=== PATIENT | female | born 1945 | race African-American/Black ===

== ENCOUNTER 2021-03-30 08:05 | Emergency (ER) | payer OTHER, MEDICARE, SELFPAY ==
[2021-03-30 08:31] VITALS: BP 155/67; PULSE 60; RESP 16; TEMP 36.5; O2SAT 99
[2021-03-30 09:10] VITALS: BP 160/82
--- NOTE | 2021-03-30 09:11 | ED.GENADULT ---
HPI - General Adult General Chief complaint: Ear Stated complaint: HBP Time Seen by Provider: 03/30/21 08:57 Source: patient and RN notes reviewed Mode of arrival: ambulatory Limitations: no limitations History of Present Illness HPI narrative: Patient presents today complaining of high blood pressure. States that last night her blood pressure was running 180s over 100s. She was not having any symptoms at that time to include headache, dizziness, chest pain, shortness of breath. She did however take extra doses of her blood pressure medication to compensate for the high readings, stating that she did not want to have a stroke. She takes Lipo flavonoid for her tinnitus and is wondering if this is having any effect on her blood pressure medication. MD complaint: High blood pressure Related Data Home Medications Medication Instructions Recorded Confirmed amlodipine 10 mg PO DAILY 03/30/21 03/30/21 atorvastatin 20 mg PO DAILY 03/30/21 03/30/21 ergocalciferol (vitamin D2) 1,250 mcg PO DAILY 03/30/21 03/30/21 lisinopril-hydrochlorothiazide 1 tablet PO DAILY 03/30/21 03/30/21 metformin 500 mg PO BID 03/30/21 03/30/21 metoprolol tartrate 25 mg PO DAILY 03/30/21 03/30/21 pantoprazole 40 mg PO DAILY 03/30/21 03/30/21 polysaccharide iron complex 150 mg PO DAILY 03/30/21 03/30/21 [Poly-Iron] Allergies Allergy/AdvReac Type Severity Reaction Status Date / Time acetaminophen Allergy Unknown ITCHING Verified 03/30/21 09:17 AND SWELLING CODEINE PHOS Allergy Unknown ITCHING Uncoded 03/30/21 09:17 AND SWELLING Review of Systems Review of Systems: Narrative: CONSTITUTIONAL: Denies body aches, fever, chills, or sweats. EYES: Denies visual changes, redness, or discharge. ENT: Denies rhinorrhea, congestion, sore throat, or otalgia. CARDIOVASCULAR: Denies chest pain, palpitations, or edema. RESPIRATORY: Denies cough or dyspnea. GASTROINTESTINAL: Denies abdominal pain, nausea, vomiting, or diarrhea. GENITOURINARY: Denies dysuria or hematuria. SKIN: Denies rash, itching, or wounds. MUSCULOSKELETAL: Denies back pain, joint pain, or myalgia. NEUROLOGIC: Denies headache, numbness, tingling, or weakness. PSYCH: Denies depression or anxiety. [facility] Past Medical History Medical History (Updated 03/30/21 @ 09:18 by Bhavani Albrecht, [facility], ) Diabetes GERD (gastroesophageal reflux disease) High cholesterol Hypertension Tinnitus Comments At time of signature, I have reviewed and agree with nursing past medical, surgical, social and family history unless otherwise noted. Please see nursing chart for further information. There is no relevant family history pertinent to the presenting complaint Exam Narrative: Exam Narrative: GENERAL: Well-appearing, well-nourished, and in no acute distress. HEAD: Normocephalic, atraumatic. EYES: EOMI. No redness or drainage. Conjunctivae normal. ENT: Mucous membranes pink and moist. NECK: Normal AROM. CHEST: No respiratory distress. Clear to auscultation. HEART: Regular rate and rhythm. No murmur appreciated. Normal peripheral pulses. EXTREMITIES: Normal range of motion. No edema. SKIN: Warm, dry, no rash. Capillary refill normal. Normal skin turgor. NEURO: No focal deficits. Alert and oriented x3. Gait steady. PSYCH: Normal affect. No signs of depression or anxiety. Patient requested that I manually rechecked her BP during my exam. It was 160/82. Course Vital Signs Vital signs: Vital Signs Temperature 97.7 F 03/30/21 08:31 Pulse Rate 60 03/30/21 08:31 Respiratory Rate 16 03/30/21 08:31 Blood Pressure 155/67 H 03/30/21 08:31 Pulse Oximetry 99 03/30/21 08:31 Temperature 97.7 F 03/30/21 08:31 Pulse Rate 60 03/30/21 08:31 Respiratory Rate 16 03/30/21 08:31 Blood Pressure 155/67 H 03/30/21 08:31 Pulse Oximetry 99 03/30/21 08:31 Reviewed. Pt has been instructed to follow up with her PCP regarding her elevated blood pressure today.
== END 2021-03-30 09:26 | disposition home or self-care (01) ==
PROVIDERS: Emergency Provider Nurse Practitioner; PCP Family Medicine
DX: I10 Essential (primary) hypertension (principal); E11.9 Type 2 diabetes mellitus without complications; K21.9 Gastro-esophageal reflux disease without esophagitis; E78.00 Pure hypercholesterolemia, unspecified; Z79.84 Long term (current) use of oral hypoglycemic drugs
CPT/HCPCS: 99211; G0463

== ENCOUNTER 2022-07-24 17:14 | Emergency (ER) | payer OTHER, MEDICARE, SELFPAY ==
--- NOTE | 2022-07-24 17:20 | ED.FEMALEGU ---
HPI - Female Genitourinary General Chief complaint: Urogenital-Female Stated complaint: uti Time Seen by Provider: 07/24/22 17:25 Source: patient, RN notes reviewed and old records reviewed Mode of arrival: ambulatory Limitations: no limitations History of Present Illness HPI Narrative: 77-year-old female presents to the [facility] with complaints of urgency, burning and frequency of urination since yesterday Denies fevers. No treatment prior to arrival. Denies abdominal pain or chest pain. No nausea vomiting or diarrhea. Denies any back or flank pain Related Data Home Medications Medication Instructions Recorded Confirmed atorvastatin 20 mg tablet 20 mg PO DAILY 03/30/21 07/24/22 ergocalciferol (vitamin D2) 1,250 1,250 mcg PO DAILY 03/30/21 07/24/22 mcg (50,000 unit) capsule metformin 500 mg tablet 500 mg PO BID 03/30/21 07/24/22 metoprolol tartrate 25 mg tablet 25 mg PO DAILY 03/30/21 07/24/22 pantoprazole 40 mg tablet,delayed 40 mg PO DAILY 03/30/21 07/24/22 release polysaccharide iron complex 150 mg 150 mg PO DAILY 03/30/21 07/24/22 iron capsule (Poly-Iron) hydralazine 50 mg tablet 50 mg PO DAILY 07/24/22 07/24/22 ketorolac 0.5 % eye drops 1 drp EACH EYE TID 07/24/22 07/24/22 losartan 25 mg tablet 25 mg PO DAILY 07/24/22 07/24/22 prednisolone acetate 1 % eye 1 drp EACH EYE TID 07/24/22 07/24/22 drops,suspension Allergies Allergy/AdvReac Type Severity Reaction Status Date / Time acetaminophen Allergy Unknown ITCHING Verified 07/24/22 17:19 AND SWELLING codeine Allergy Unknown Itching Verified 07/24/22 17:19 lisinopril Allergy Unknown Other Verified 07/24/22 17:34 Review of Systems Review of Systems: All systems reviewed & are unremarkable except as noted in HPI and below Constitutional: Constitutional: Reports no additional constitutional complaints, Denies chills and Denies fatigue Eyes: Eyes: Reports no additional eye complaints ENT: Reports system reviewed and no additional complaints, except as documented Cardiovascular: Cardiovascular: Reports no additional cardiovascular complaints Respiratory: Respiratory: Reports no additional respiratory complaints Gastrointestinal: Gastrointestinal: Reports no additional gastrointestinal complaints, Denies abdominal pain, Denies diarrhea, Denies nausea and Denies vomiting Genitourinary: Genitourinary: Reports as per HPI, Reports hematuria, Reports nocturia, Reports dysuria, Denies flank pain and Denies vaginal discharge Musculoskeletal: Musculoskeletal: Reports no additional musculoskeletal complaints and Denies back pain Integumentary/Breasts: Skin/Breast: Reports system reviewed and no additional complaints, except as docu Neurologic: Reports system reviewed and no additional complaints, except as documented Psychiatric: Psychiatric: Reports no additional psychiatric complaints Endocrine: Endocrine: Denies fatigue Allergic/Immunologic: Allergic/Immunologic: Reports no additional allergic/immunologic complaints PMFSH Past Medical History Medical History Diabetes GERD (gastroesophageal reflux disease) High cholesterol Hypertension Tinnitus Social History Social History (Updated 07/24/22 @ 18:11 by Kristy Castano APRN) Gender identity (if verbalized by the patient): Female Comments At the time of my signature, I reviewed and agree with the nursing past medical, surgical, social, and family history. There is no relevant family history pertinent to the patient complaint. Exam Const: General: healthy appearing, no acute distress and alert Nutritional Appearance: well nourished and obese Orientation/consciousness: patient oriented x3 Limitations: no limitations HENMT: Head: normal to inspection Ears: external ears normal Eyes: Conjunctivae: conjunctivae normal Pupils: Equal, round and reactive pupils present Neck: Neck: normal visual inspection, no lymphadenopathy
[2022-07-24 17:28] VITALS: BP 166/74; PULSE 92; RESP 16; TEMP 36.4; O2SAT 99
== END 2022-07-24 17:38 | disposition home or self-care (01) ==
PROVIDERS: Emergency Provider Nurse Practitioner; PCP Family Medicine
DX: N39.0 Urinary tract infection, site not specified (principal); E11.9 Type 2 diabetes mellitus without complications; K21.9 Gastro-esophageal reflux disease without esophagitis; E78.00 Pure hypercholesterolemia, unspecified; I10 Essential (primary) hypertension
CPT/HCPCS: 81003; 87086; 99213; G0463

== ENCOUNTER 2022-10-28 13:02 | Emergency (ER) | payer OTHER, MEDICARE, SELFPAY ==
[2022-10-28 13:20] VITALS: BP 136/69; PULSE 71; RESP 16; TEMP 37.2; O2SAT 99
--- NOTE | 2022-10-28 13:48 | ED.URI ---
HPI - URI/Sore Throat General Chief Complaint: Upper Respiratory Infection Stated Complaint: Sinus,Cough Time Seen by Provider: 10/28/22 13:48 Source: patient Mode of arrival: ambulatory Limitations: no limitations History of Present Illness HPI Narrative: 77-year-old female presents with complaint of nasal congestion, fatigue for 6 days. Is taking an [id number] flu medications that is improving her symptoms. Afebrile. No chest pain or shortness of breath. States I am here because I want to know what is wrong with me . All systems reviewed and negative except as noted above. Related Data Home Medications Medication Instructions Recorded Confirmed metformin 500 mg tablet 500 mg PO BID 03/30/21 07/24/22 metoprolol tartrate 25 mg tablet 25 mg PO DAILY 03/30/21 07/24/22 polysaccharide iron complex 150 mg 150 mg PO DAILY 03/30/21 07/24/22 iron capsule (Poly-Iron) hydralazine 50 mg tablet 50 mg PO DAILY 07/24/22 07/24/22 ketorolac 0.5 % eye drops 1 drp EACH EYE TID 07/24/22 07/24/22 losartan 25 mg tablet 25 mg PO DAILY 07/24/22 07/24/22 prednisolone acetate 1 % eye 1 drp EACH EYE TID 07/24/22 07/24/22 drops,suspension lactulose 10 gram/15 mL oral 10/28/22 solution rosuvastatin 20 mg tablet mg 10/28/22 Allergies Allergy/AdvReac Type Severity Reaction Status Date / Time acetaminophen Allergy Unknown ITCHING Verified 10/28/22 13:31 AND SWELLING codeine Allergy Unknown Itching Verified 10/28/22 13:31 lisinopril Allergy Unknown Other Verified 10/28/22 13:31 Review of Systems Review of Systems: CONSTITUTIONAL: Denies fever, chills, or sweats. reports fatigue. EYES: Denies visual changes, redness, or discharge. ENT: Reports rhinorrhea, congestion. Denies sore throat, or otalgia. CARDIOVASCULAR: Denies chest pain, palpitations, or edema. RESPIRATORY: Denies cough or dyspnea. GASTROINTESTINAL: Denies abdominal pain, nausea, vomiting, or diarrhea. GENITOURINARY: Denies dysuria or hematuria. SKIN: Denies rash or itching. MUSCULOSKELETAL: Denies back pain, joint pain, or myalgia. NEUROLOGIC: Denies headache, numbness, or weakness. PSYCHIATRIC: Denies anxiety or depression. All other systems reviewed are negative, except as documented in HPI. [facility] Past Medical History Medical History Diabetes GERD (gastroesophageal reflux disease) High cholesterol Hypertension Tinnitus Social History Social History (Updated 07/24/22 @ 18:11 by Kristy Castano APRN) Gender identity (if verbalized by the patient): Female Comments At time of signature, agree with nursing past medical, surgical, social and family history. There is no relevant family history pertinent to the presenting complaint. Exam Narrative: GENERAL: This is a well-nourished, well-developed patient, in no apparent distress. HEAD: normocephalic, atraumatic. EYES: PERRL. Sclera clear/white. Vision is grossly intact. EARS: External ears normal, auditory canals clear and without drainage, TMs normal without perforation. Hearing grossly intact. NOSE: External nose normal with Clear nasal drainage, erythema to both nares. THROAT: Mucous membranes moist, posterior pharynx clear. NECK: Neck supple, non-tender without lymphadenopathy, masses or thyromegaly. CARDIOVASCULAR: Regular rate and rhythm without murmurs, gallops, or rubs. RESPIRATORY: Clear to auscultation. Breath sounds equal bilaterally. No wheezes, rales, or rhonchi. SKIN: warm, Dry, intact with no suspicious lesions or rash, good texture and turgor. NEURO: awake, alert, and oriented to person, place and time. There were no obvious focal neurologic abnormalities. EXTREMITIES: No joint tenderness, effusion, or edema noted. Course Course Level of Care: Express Care Visit Vital Signs Vital signs: Vital Signs Temperature 37.2 C 10/28/22 13:20 Pulse Rate 71 10/28/22 13:20 Respiratory Rate 16 10/28/22 1
== END 2022-10-28 14:17 | disposition home or self-care (01) ==
PROVIDERS: Emergency Provider Nurse Practitioner Family; PCP Family Medicine
DX: U07.1 COVID-19 (principal); E11.9 Type 2 diabetes mellitus without complications; K21.9 Gastro-esophageal reflux disease without esophagitis; E78.00 Pure hypercholesterolemia, unspecified; I10 Essential (primary) hypertension; Z79.84 Long term (current) use of oral hypoglycemic drugs
CPT/HCPCS: 87426; 99213; C9803; G0463

== ENCOUNTER 2024-03-26 13:27 | Emergency (ER) | payer OTHER, MEDICARE, SELFPAY ==
--- NOTE | 2024-03-26 13:29 | ED.FEMALEGU ---
HPI - Female Genitourinary General Chief complaint: Urogenital-Female Stated complaint: Urinary Problems Time Seen by Provider: 03/26/24 13:37 Source: patient and RN notes reviewed Mode of arrival: ambulatory Limitations: no limitations History of Present Illness HPI Narrative: 78-year-old female presents with concern for 1 day history of dysuria, frequency, urgency with mild stomach ache. She denies fever, aches, chills, sweats, back pain, vomiting. Reports history of urinary tract infections. MD elicited complaint: UTI Related Data Home Medications Medication Instructions Recorded Confirmed metformin 500 mg tablet 500 mg PO BID 03/30/21 07/24/22 metoprolol tartrate 25 mg tablet 25 mg PO DAILY 03/30/21 07/24/22 polysaccharide iron complex 150 mg 150 mg PO DAILY 03/30/21 07/24/22 iron capsule (Poly-Iron) hydralazine 50 mg tablet 50 mg PO DAILY 07/24/22 07/24/22 ketorolac 0.5 % eye drops 1 drp EACH EYE TID 07/24/22 07/24/22 losartan 25 mg tablet 25 mg PO DAILY 07/24/22 07/24/22 prednisolone acetate 1 % eye 1 drp EACH EYE TID 07/24/22 07/24/22 drops,suspension rosuvastatin 20 mg tablet mg 10/28/22 aspirin 81 mg tablet,delayed mg 03/26/24 release hydrochlorothiazide 25 mg tablet mg 03/26/24 nitrofurantoin 100 mg PO BID 03/26/24 03/26/24 monohydrate/macrocrystals 100 mg capsule Allergies Allergy/AdvReac Type Severity Reaction Status Date / Time acetaminophen Allergy Unknown ITCHING Verified 03/26/24 13:33 AND SWELLING codeine Allergy Unknown Itching Verified 03/26/24 13:33 lisinopril Allergy Unknown Other Verified 03/26/24 13:33 Review of Systems Review of Systems: CONSTITUTIONAL: Denies malaise, chills, sweats, or fever. CARDIOVASCULAR: Denies chest pain, palpitations, or edema. RESPIRATORY: Denies cough or dyspnea. GASTROINTESTINAL: Denies abdominal pain, nausea, vomiting, diarrhea. Reports cells that stomach GENITOURINARY: Reports dysuria, frequency, urgency. Denies flank pain or hematuria. SKIN: Denies rash or itching. MUSCULOSKELETAL: Denies back pain or myalgia. All systems reviewed & are unremarkable except as noted in HPI and below PMFSH Past Medical History Medical History Diabetes GERD (gastroesophageal reflux disease) High cholesterol Hypertension Tinnitus Social History Social History (Updated 07/24/22 @ 18:11 by Kristy Castano APRN) Gender identity (if verbalized by the patient): Female Comments At time of signature, agree with nursing past medical, surgical, social and family history. There is no relevant family history pertinent to the presenting complaint Exam Narrative: GENERAL: Well-appearing, well-nourished, and in no acute distress. HEAD: Normocephalic. EYES: PERRLA, conjunctivae clear. NECK: Supple. No lymphadenopathy CHEST: Clear to auscultation. No respiratory distress. HEART: Regular rate and rhythm. ABDOMEN: Soft, nontender upon palpation, nondistended, normal active bowel sounds, no palpable or pulsatile masses, no guarding. No CVA tenderness SKIN: Warm, dry, no rash. NEURO: Alert and oriented x3. PSYCH: Normal mood and affect Course Course Emergency Course: Patient is aware of diagnosis, understands and agrees to treatment plan. Anticipatory guidance given. Patient agrees to follow-up as directed and is aware of reasons to seek care at the emergency department. Portions of this record may have been created with voice recognition software Level of Care: Express Care Visit Vital Signs Vital signs: Reviewed. MDM - Female Genitourinary MDM Narrative Medical decision making narrative: Exam findings and UA show no acute concerns or changes; patient is non-toxic appearing and is in no distress. Patient is appropriate for outpatient treatment and follow-up. Differential Diagnosis Differential diagnosis: Likely urinary tract infection and cystitis Critical Care Time Cri
[2024-03-26 13:35] VITALS: BP 143/60; PULSE 75; RESP 16; TEMP 36.4; O2SAT 99
[2024-03-26 13:44] VITALS: BP 143/60; PULSE 75; RESP 16; TEMP 36.4; O2SAT 99
== END 2024-03-26 13:47 | disposition home or self-care (01) ==
PROVIDERS: Emergency Provider Nurse Practitioner; PCP Internal Medicine
DX: N39.0 Urinary tract infection, site not specified (principal); E11.9 Type 2 diabetes mellitus without complications; Z79.84 Long term (current) use of oral hypoglycemic drugs; K21.9 Gastro-esophageal reflux disease without esophagitis; E78.00 Pure hypercholesterolemia, unspecified; I10 Essential (primary) hypertension; Z79.82 Long term (current) use of aspirin
CPT/HCPCS: 81003; 87086; 99213; G0463

== ENCOUNTER 2024-06-15 13:42 | Emergency (ER) | payer OTHER, MEDICARE, SELFPAY ==
[2024-06-15 14:00] VITALS: BP 117/50; PULSE 68; RESP 18; TEMP 36.1; O2SAT 95
--- NOTE | 2024-06-15 14:16 | ED.EYEPROB ---
HPI - Eye Problem General Chief complaint: Eye Problems Stated complaint: left eye red Time Seen by Provider: 06/15/24 14:10 Source: patient and RN notes reviewed Mode of arrival: ambulatory Limitations: no limitations History of Present Illness HPI Narrative: Patient presents today with redness to her left eye. Reports she noted ate yesterday after getting since open her eye when washing her face. Denies any current pain, itching, drainage, vision changes. She wears glasses only when reading. Visual acuity upon arrival is 20/40 in either eye. Patient is on aspirin daily. Related Data Home Medications Medication Instructions Recorded Confirmed metformin 500 mg tablet 500 mg PO BID 03/30/21 06/15/24 metoprolol tartrate 25 mg tablet 25 mg PO DAILY 03/30/21 06/15/24 polysaccharide iron complex 150 mg 150 mg PO DAILY 03/30/21 06/15/24 iron capsule (Poly-Iron) hydralazine 50 mg tablet 50 mg PO DAILY 07/24/22 06/15/24 losartan 25 mg tablet 25 mg PO DAILY 07/24/22 06/15/24 rosuvastatin 20 mg tablet 20 mg PO DAILY 10/28/22 06/15/24 aspirin 81 mg tablet,delayed 81 mg PO DAILY 03/26/24 06/15/24 release hydrochlorothiazide 25 mg tablet 25 mg PO DAILY 03/26/24 06/15/24 Allergies Allergy/AdvReac Type Severity Reaction Status Date / Time acetaminophen Allergy Unknown ITCHING Verified 06/15/24 13:45 AND SWELLING codeine Allergy Unknown Itching Verified 06/15/24 13:45 lisinopril Allergy Unknown Other Verified 06/15/24 13:45 Review of Systems Review of Systems: CONSTITUTIONAL: Denies body aches, fever, chills, or sweats. EYES: Denies visual changes, discharge.+ left eye redness ENT: Denies rhinorrhea, congestion, sore throat, or otalgia. CARDIOVASCULAR: Denies chest pain, palpitations, or edema. RESPIRATORY: Denies cough or dyspnea. GASTROINTESTINAL: Denies abdominal pain, nausea, vomiting, or diarrhea. GENITOURINARY: Denies dysuria or hematuria. SKIN: Denies rash, itching, or wounds. MUSCULOSKELETAL: Denies back pain, joint pain, or myalgia. NEUROLOGIC: Denies headache, numbness, tingling, or weakness. PSYCH: Denies depression or anxiety. PMFSH Past Medical History Medical History Diabetes GERD (gastroesophageal reflux disease) High cholesterol Hypertension Tinnitus Social History Social History Gender identity (if verbalized by the patient): Female Comments At time of signature, I have reviewed and agree with nursing past medical, surgical, social and family history unless otherwise noted. Please see nursing chart for further information. There is no relevant family history pertinent to the presenting complaint Exam Narrative: GENERAL: Well-appearing, well-nourished, and in no acute distress. HEAD: Normocephalic, atraumatic. EYES: EOMI. PERRL. No drainage. Conjunctivae normal. Mild to Moderate Left subconjunctival hemorrhage. Lids and lashes normal. ENT: Mucous membranes pink and moist. NECK: Normal AROM. CHEST: No respiratory distress. EXTREMITIES: Normal range of motion. No edema. SKIN: Warm, dry, no rash. Capillary refill normal. Normal skin turgor. NEURO: No focal deficits. Alert and oriented x3. Gait steady. PSYCH: Normal affect. No signs of depression or anxiety. Course Course Level of Care: Express Care Visit Vital Signs Vital signs: Vital Signs Temperature 96.9 F L 06/15/24 14:00 Pulse Rate 68 06/15/24 14:00 Respiratory Rate 18 06/15/24 14:00 Blood Pressure 117/50 L 06/15/24 14:00 Pulse Oximetry 95 06/15/24 14:00 Oxygen Delivery Room Air 06/15/24 14:00 Temperature 96.9 F L 06/15/24 14:00 Pulse Rate 68 06/15/24 14:00 Respiratory Rate 18 06/15/24 14:00 Blood Pressure 117/50 L 06/15/24 14:00 Pulse Oximetry 95 06/15/24 14:00 Oxygen Delivery Room Air 06/15/24 14:00 Reviewed MDM - Eye Problem
== END 2024-06-15 14:20 | disposition home or self-care (01) ==
PROVIDERS: Emergency Provider Nurse Practitioner; PCP Internal Medicine
DX: H11.32 Conjunctival hemorrhage, left eye (principal); E11.9 Type 2 diabetes mellitus without complications; Z79.84 Long term (current) use of oral hypoglycemic drugs; K21.9 Gastro-esophageal reflux disease without esophagitis; E78.00 Pure hypercholesterolemia, unspecified; I10 Essential (primary) hypertension; Z79.82 Long term (current) use of aspirin
CPT/HCPCS: 99212; G0463

== ENCOUNTER 2024-08-04 16:45 | Emergency (ER) | payer OTHER, MEDICARE, SELFPAY ==
[2024-08-04 17:03] VITALS: BP 130/65; PULSE 74; RESP 16; TEMP 36.1; O2SAT 99
[2024-08-04 17:10] LABS: EDUAAPPEAR Clear; EDUABILI Negative (Negative); EDUABLOOD Negative (Negative); EDUACOLOR1 Yellow; EDUAGLUCOSE Negative (Negative); EDUAKETONE Negative (Negative); EDUALEUKO 2+ (Negative); EDUANITRATE Negative (Negative); EDUAPROTEIN Negative (Negative); EDUAUROBILI 0.2
--- NOTE | 2024-08-04 17:55 | ED.ABDPAIN ---
HPI - Abdominal Pain General Chief Complaint: Urogenital-Female Stated Complaint: urinary issue Time Seen by Provider: 08/04/24 17:56 Source: patient, RN notes reviewed and old records reviewed Mode of arrival: ambulatory Limitations: no limitations History of Present Illness HPI narrative: Patient presents with complaints of urinary frequency, burning, hematuria. She reports symptoms have been present for 3 or 4 days. States that symptoms are slightly worse today than at onset. She denies any fever, chills, sweats. She denies any back pain, she denies any abdominal pain. She denies any nausea or vomiting. She voices no other concerns or complaints today. Related Data Home Medications Medication Instructions Recorded Confirmed metformin 500 mg tablet 500 mg PO BID 03/30/21 08/04/24 metoprolol tartrate 25 mg tablet 25 mg PO DAILY 03/30/21 08/04/24 polysaccharide iron complex 150 mg 150 mg PO DAILY 03/30/21 08/04/24 iron capsule (Poly-Iron) hydralazine 50 mg tablet 50 mg PO DAILY 07/24/22 08/04/24 losartan 25 mg tablet 25 mg PO DAILY 07/24/22 08/04/24 rosuvastatin 20 mg tablet 20 mg PO DAILY 10/28/22 08/04/24 aspirin 81 mg tablet,delayed 81 mg PO DAILY 03/26/24 08/04/24 release hydrochlorothiazide 25 mg tablet 25 mg PO DAILY 03/26/24 08/04/24 pantoprazole 40 mg tablet,delayed 40 mg PO DAILY 08/04/24 08/04/24 release polysaccharide iron complex 150 mg 150 mg PO DAILY 08/04/24 08/04/24 iron capsule rosuvastatin 40 mg tablet 40 mg PO DAILY 08/04/24 08/04/24 Allergies Allergy/AdvReac Type Severity Reaction Status Date / Time acetaminophen Allergy Unknown ITCHING Verified 08/04/24 16:48 AND SWELLING codeine Allergy Unknown Itching Verified 08/04/24 16:48 lisinopril Allergy Unknown Other Verified 08/04/24 16:48 Review of Systems Review of Systems: All systems reviewed & are unremarkable except as noted in HPI and below Constitutional: Constitutional: Reports no additional constitutional complaints ENT: Reports system reviewed and no additional complaints, except as documented Cardiovascular: Cardiovascular: Reports no additional cardiovascular complaints Respiratory: Respiratory: Reports no additional respiratory complaints Gastrointestinal: Gastrointestinal: Reports no additional gastrointestinal complaints Genitourinary: Genitourinary: Reports as per HPI, Reports dysuria and Reports urinary urgency [facility] Past Medical History Medical History Diabetes GERD (gastroesophageal reflux disease) High cholesterol Hypertension Tinnitus Social History Social History Gender identity (if verbalized by the patient): Female Comments At the time of my signature, I reviewed and agree with the nursing past medical, surgical, social, and family history. There is no relevant family history pertinent to the patient complaint. Exam Const: General: cooperative, no acute distress, alert and awake Orientation/consciousness: oriented to person, oriented to place and oriented to time HENMT: Head: normal to inspection Resp: Effort & Inspection: normal respiratory effort and able to speak in complete sentences Auscultation: clear to auscultation bilaterally, no crackles, no rales, no rhonchi and no wheezes Cardio: Palpation: normal PMI Rate: regular rate Rhythm: regular rhythm Heart sounds: S1 normal heart sound present and S2 normal heart sound present : General: Yes bladder normal to palpation and Yes no CVA tenderness Back/Spine/Pelvis: Back: no CVA tenderness Neuro: General: oriented to person, oriented to place and oriented to time Cranial nerves: Yes CN's II-XII intact bilaterally Psych: Appearance: grossly normal Thought process: Normal thought process present Insight: Good insight present (Psych) Judgement: Good judgement present (Psych) Course Course Level of Care: E
== END 2024-08-04 18:07 | disposition home or self-care (01) ==
PROVIDERS: Emergency Provider Nurse Practitioner Family; PCP Internal Medicine
DX: N39.0 Urinary tract infection, site not specified (principal); E11.9 Type 2 diabetes mellitus without complications; I10 Essential (primary) hypertension; K21.9 Gastro-esophageal reflux disease without esophagitis; E78.00 Pure hypercholesterolemia, unspecified
CPT/HCPCS: 81003; 87077; 87086; 87186; 99213; G0463

== ENCOUNTER 2024-11-26 13:33 | Emergency (ER) | payer OTHER, MEDICARE, SELFPAY ==
[2024-11-26 13:43] VITALS: BP 119/60; PULSE 68; RESP 16; TEMP 36.6; O2SAT 100
--- NOTE | 2024-11-26 13:48 | ED_ITS ---
HPI - Female Genitourinary General Chief complaint: Urogenital-Female Stated complaint: UTI Time Seen by Provider: 11/26/24 13:35 Source: patient Mode of arrival: ambulatory Limitations: no limitations History of Present Illness HPI Narrative: Antonia is a 79-year-old female patient presenting to the clinic today with complaints of possible urinary tract infection times 1 week. He reports burning, urgency, frequency, and urinary odor. Does report some lower abdominal pressure. Denies any fevers, chills, or body aches. Denies any flank pain. Related Data Home Medications ?Medication ?Instructions ?Recorded ?Confirmed ?Last Taken ?Type metformin 500 mg tablet 500 mg PO BID 03/30/21 08/04/24 Unknown History metoprolol tartrate 25 mg tablet 25 mg PO DAILY 03/30/21 08/04/24 Unknown History polysaccharide iron complex 150 mg 150 mg PO DAILY 03/30/21 08/04/24 Unknown History iron capsule (Poly-Iron) hydralazine 50 mg tablet 50 mg PO DAILY 07/24/22 08/04/24 Unknown History losartan 25 mg tablet 25 mg PO DAILY 07/24/22 08/04/24 Unknown History rosuvastatin 20 mg tablet 20 mg PO DAILY 10/28/22 08/04/24 Unknown History aspirin 81 mg tablet,delayed 81 mg PO DAILY 03/26/24 08/04/24 Unknown History release hydrochlorothiazide 25 mg tablet 25 mg PO DAILY 03/26/24 08/04/24 Unknown History pantoprazole 40 mg tablet,delayed 40 mg PO DAILY 08/04/24 08/04/24 Unknown History release polysaccharide iron complex 150 mg 150 mg PO DAILY 08/04/24 08/04/24 Unknown History iron capsule rosuvastatin 40 mg tablet 40 mg PO DAILY 08/04/24 08/04/24 Unknown History Allergies Allergy/AdvReac Type Severity Reaction Status Date / Time acetaminophen Allergy Unknown ITCHING Verified 11/26/24 13:49 AND SWELLING codeine Allergy Unknown Itching Verified 11/26/24 13:49 lisinopril Allergy Unknown Other Verified 11/26/24 13:49 Review of Systems Review of Systems: Pertinent positives per HPI. Patient denies any fever, chills, rash, headache, visual changes, dizziness, cough, runny nose, sore throat, shortness of breath, chest pain, palpitations, nausea, vomiting, diarrhea, constipation. PMFSH Past Medical History Medical History Diabetes High cholesterol GERD (gastroesophageal reflux disease) Tinnitus Hypertension Social History Social History Gender identity (if verbalized by the patient): Female Comments At the time of my signature, I reviewed and agree with the nursing past medical, surgical, social, and family history. There is no relevant family history pertinent to the patient complaint. Exam Narrative: General: Well-developed, well nourished, in no apparent distress. Head: Normocephalic, atraumatic. Cardio: Regular rate and rhythm, s1 and s2 normal, no murmur appreciated. Resp: Clear to auscultation bilaterally, no rhonchi, rales, wheezing or rubs. Abdomen: Soft, pliable, bowel sounds present in all quadrants, tender to palpation over the suprapubic bladder, no organomegly, no CVAT tenderness. Course Course Emergency Course: Portions of this record may have been created with voice recognition software. Level of Care: Express Care Visit Vital Signs Vital signs: Vital Signs Temperature 36.6 C 11/26/24 13:43 Pulse Rate 68 11/26/24 13:43 Respiratory Rate 16 11/26/24 13:43 Blood Pressure 119/60 11/26/24 13:43 Pulse Oximetry 100 11/26/24 13:43 Oxygen Delivery Room Air 11/26/24 13:43 Temperature 36.6 C 11/26/24 13:43 Pulse Rate 68 11/26/24 13:43 Respiratory Rate 16 11/26/24 13:43 Blood Pressure 119/60 11/26/24 13:43 Pulse Oximetry 100 11/26/24 13:43 Oxygen Delivery Room Air 11/26/24 13:43 Vital signs reviewed MDM - Female Genitourinary MDM Narrative Medical decision making narrative: At the time of visit patient is resting comfortably on the exam table. Patient appears to be nontoxic. Labs: Urinalysis positive for leukocytes, protein, and ketones trace. Plan: Patient has urinary tract infection. Prescription for Keflex was sent to the pharmacy. We will send urine for culture. Supportive measures were discussed with the patient and they voiced understanding discharge instructions and agrees to treatment plan. Return precautions reviewed Differential Diagnosis Differential diagnosis: Likely urinary tract infection and cystitis Lab Data Labs: Lab Results 11/26/24 Range/Units 13:48 POC Urine Color Yellow POC Urine Clarity Cloudy POC Urine pH 7.0 POC Ur Specif [place] 1.020 POC Urine Protein 1+ (Negative) POC Ur Glucose (UA) Negative (Negative) POC Urine Ketones Trace (Negative) POC Urine Blood Negative (Negative) POC Urine Nitrite Negative (Negative) POC Urine Bilirubin Negative (Negative) POC Urine Urobilinogen 0.2 POC U Leukocyte Esteras Trace (Negative) Discharge Plan Discharge Clinical Impression: Urinary tract infection Qualifiers: Urinary tract infection type: acute cystitis Hematuria presence: without hematuria Qualified Code(s): N30.00 - Acute cystitis without hematuria Patient Disposition: Home, Self-Care Condition: Stable Instructions: Antibiotic Form, Urinary Tract Infection in Women (ED) Additional Instructions: Urinalysis shows leukocytes, protein, and ketones. Increase fluids and stay well hydrated Wipe front to back. May use wet wipes. Avoid tub baths If sexually active- pee before and after intercourse. Wear cotton panties Avoid tight clothing up against the genitals Follow up with your PCP in 1 week if symptoms persist. Patient Language: Telugu Prescriptions: New cephalexin 500 mg capsule 500 mg PO Q12H 7 Days Qty: 14 0RF No Action losartan 25 mg tablet 25 mg PO DAILY hydralazine 50 mg tablet 50 mg PO DAILY metformin 500 mg tablet 500 mg PO BID polysaccharide iron complex [Poly-Iron] 150 mg iron capsule 150 mg PO DAILY metoprolol tartrate 25 mg tablet 25 mg PO DAILY rosuvastatin 20 mg tablet 20 mg PO DAILY aspirin 81 mg tablet,delayed release (DR/EC) 81 mg PO DAILY hydrochlorothiazide 25 mg tablet 25 mg PO DAILY polysaccharide iron complex 150 mg iron capsule 150 mg PO DAILY pantoprazole 40 mg tablet,delayed release (DR/EC) 40 mg PO DAILY rosuvastatin 40 mg tablet 40 mg PO DAILY nitrofurantoin monohyd/m-cryst [Macrobid] 100 mg capsule 100 mg PO Q12H 5 Days Qty: 10 0RF Rx Instructions: must administer with a meal/food Follow-up/Referrals: Quinn,Yoav Grey MD [Primary Care Provider] - Time of Disposition: 14:04 Quality NIHSS Nursing Documentation ED NIHSS nursing documentation: reviewed/agree
[2024-11-26 13:56] LABS: EDUAAPPEAR Cloudy; EDUABILI Negative (Negative); EDUABLOOD Negative (Negative); EDUACOLOR1 Yellow; EDUAGLUCOSE Negative (Negative); EDUAKETONE Trace (Negative); EDUALEUKO Trace (Negative); EDUANITRATE Negative (Negative); EDUAPROTEIN 1+ (Negative); EDUAUROBILI 0.2
== END 2024-11-26 14:10 | disposition home or self-care (01) ==
PROVIDERS: Emergency Provider Nurse Practitioner Family; PCP Internal Medicine
DX: N30.00 Acute cystitis without hematuria (principal); E11.9 Type 2 diabetes mellitus without complications; Z79.84 Long term (current) use of oral hypoglycemic drugs; E78.00 Pure hypercholesterolemia, unspecified; K21.9 Gastro-esophageal reflux disease without esophagitis; I10 Essential (primary) hypertension; Z79.82 Long term (current) use of aspirin
CPT/HCPCS: 81003; 87086; 99213; G0463

== ENCOUNTER 2024-12-26 10:16 | Emergency (ER) | payer OTHER, MEDICARE, SELFPAY ==
[2024-12-26 10:32] VITALS: BP 118/53; PULSE 64; RESP 16; TEMP 35.8; O2SAT 98
[2024-12-26 10:37] LABS: EDUAAPPEAR Clear; EDUABILI Negative (Negative); EDUABLOOD Trace (Negative); EDUACOLOR1 Yellow; EDUAGLUCOSE Negative (Negative); EDUAKETONE Negative (Negative); EDUALEUKO 2+ (Negative); EDUANITRATE Negative (Negative); EDUAPROTEIN 1+ (Negative); EDUASPGRAVITY 1.015; EDUAUROBILI 0.2
--- NOTE | 2024-12-26 11:11 | ED.FEMALEGU ---
HPI - Female Genitourinary General Chief complaint: Urogenital-Female Stated complaint: UTI Time Seen by Provider: 12/26/24 11:11 Source: patient, RN notes reviewed and old records reviewed Mode of arrival: ambulatory Limitations: no limitations History of Present Illness HPI Narrative: 79-year-old female presents to the [facility] with concerns for a UTI. Patient reports that she has taken cranberry pills and some antibiotic. Patient reports that her urine had just does not small right. Symptoms started yesterday. States that she did call her primary care provider and had called in additional testing to [facility]. Patient asking if we can do the testing here at the facility. Explained that we cannot see anything that [facility] does nor what her primary care provider can do. Related Data Home Medications ?Medication ?Instructions ?Recorded ?Confirmed ?Last Taken ?Type metformin 500 mg tablet 500 mg PO BID 03/30/21 12/26/24 Unknown History metoprolol tartrate 25 mg tablet 25 mg PO DAILY 03/30/21 12/26/24 Unknown History polysaccharide iron complex 150 mg 150 mg PO DAILY 03/30/21 12/26/24 Unknown History iron capsule (Poly-Iron) hydralazine 50 mg tablet 50 mg PO DAILY 07/24/22 12/26/24 Unknown History losartan 25 mg tablet 25 mg PO DAILY 07/24/22 12/26/24 Unknown History rosuvastatin 20 mg tablet 20 mg PO DAILY 10/28/22 12/26/24 Unknown History aspirin 81 mg tablet,delayed 81 mg PO DAILY 03/26/24 12/26/24 Unknown History release hydrochlorothiazide 25 mg tablet 25 mg PO DAILY 03/26/24 12/26/24 Unknown History pantoprazole 40 mg tablet,delayed 40 mg PO DAILY 08/04/24 12/26/24 Unknown History release polysaccharide iron complex 150 mg 150 mg PO DAILY 08/04/24 12/26/24 Unknown History iron capsule rosuvastatin 40 mg tablet 40 mg PO DAILY 08/04/24 12/26/24 Unknown History Allergies Allergy/AdvReac Type Severity Reaction Status Date / Time acetaminophen Allergy Unknown ITCHING Verified 12/26/24 10:36 AND SWELLING codeine Allergy Unknown Itching Verified 12/26/24 10:36 lisinopril Allergy Unknown Other Verified 12/26/24 10:36 Review of Systems Review of Systems: All systems reviewed & are unremarkable except as noted in HPI and below Constitutional: Constitutional: Reports no additional constitutional complaints ENT: Reports system reviewed and no additional complaints, except as documented Cardiovascular: Cardiovascular: Reports no additional cardiovascular complaints, Denies chest pain and Denies dyspnea Respiratory: Respiratory: Reports no additional respiratory complaints, Denies chest congestion, Denies cough and Denies dyspnea Genitourinary: Genitourinary: Reports as per HPI Musculoskeletal: Musculoskeletal: Reports no additional musculoskeletal complaints Integumentary/Breasts: Skin/Breast: Reports system reviewed and no additional complaints, except as docu PMFSH Past Medical History Medical History Diabetes High cholesterol GERD (gastroesophageal reflux disease) Tinnitus Hypertension Social History Social History Gender identity (if verbalized by the patient): Female Comments At the time of my signature, I reviewed and agree with the nursing past medical, surgical, social, and family history. There is no relevant family history pertinent to the patient complaint. Exam Const: General: cooperative, healthy appearing, comfortable, no acute distress, well developed, alert and well nourished Nutritional Appearance: well nourished Orientation/consciousness: patient oriented x3 Limitations: no limitations HENMT: Head: normal to inspection Eyes: General: appearance normal, both eyes and all related structures Alignment and Position: alignment normal Neck: Neck: normal visual inspection, full ROM, no lymphadenopathy and no meningeal signs Chest: Chest palpation & inspection: normal inspection of the chest Resp: Effort & Inspection: normal respiratory effort and able to speak in complete sentences Auscultation: clear to auscultation bilaterally, no crackles, no rales, no rhonchi and no wheezes Cardio: Rate: regular rate GI: GI Palp: No abdominal tenderness : General: Yes no CVA tenderness Skin: General skin exam: normal color and no rashes or lesions noted Neuro: General: patient oriented x3, gait normal, moves all extremities and no meningeal signs Cognition (Neuro): normal cognition Speech: normal speech Gait exam (Neuro): Normal gait present Extrem: General: normal to inspection, full ROM, capillary refill normal and normal gait Psych: Appearance: grossly normal and well kempt Mental Status: mental status grossly normal Speech and movement: Normal speech and movement present and Clear speech present Affect: normal affect Attitude: cooperative Course Course Level of Care: Express Care Visit Vital Signs Vital signs: Vital Signs Temperature 96.4 F L 12/26/24 10:32 Pulse Rate 64 12/26/24 10:32 Respiratory Rate 16 12/26/24 10:32 Blood Pressure 118/53 L 12/26/24 10:32 Pulse Oximetry 98 12/26/24 10:32 Oxygen Delivery Room Air 12/26/24 10:32 Temperature 96.4 F L 12/26/24 10:32 Pulse Rate 64 12/26/24 10:32 Respiratory Rate 16 12/26/24 10:32 Blood Pressure 118/53 L 12/26/24 10:32 Pulse Oximetry 98 12/26/24 10:32 Oxygen Delivery Room Air 12/26/24 10:32 Reviewed MDM - Female Genitourinary MDM Narrative Medical decision making narrative: Patient sitting comfortably in exam room. Nontoxic, vitals stable. Patient in no acute distress. Patient presents with concerns for UTI. Leukocytes noted in her urine. Patient was requesting additional testing that her primary care provider has sent to [facility]. Attempted to explain that we are not affiliated with her primary nor with [facility]. Patient is appropriate for outpatient treatment of UTI, will culture Discharge instructions reviewed with patient, as well as provided in writing per nursing staff. The instructions also include specific and strict return/GO TO THE ER as well as f/u information. All questions have been answered, and the patient deny any further questions with discharge and discharge plan. Some parts of this dictation were generated by voice recognition software and may contain typographical and/or grammatical inaccuracies. Differential Diagnosis Differential diagnosis: Likely urinary tract infection and cystitis Lab Data Labs: Lab Results 12/26/24 Range/Units 10:34 POC Urine Color Yellow POC Urine Clarity Clear POC Urine pH 7.0 POC Ur Specif [place] 1.015 POC Urine Protein 1+ (Negative) POC Ur Glucose (UA) Negative (Negative) POC Urine Ketones Negative (Negative) POC Urine Blood Trace (Negative) POC Urine Nitrite Negative (Negative) POC Urine Bilirubin Negative (Negative) POC Urine Urobilinogen 0.2 POC U Leukocyte Esteras 2+ (Negative) Reviewed Critical Care Time Critical Care Time Critical Care Time: No Discharge Plan Discharge Clinical Impression: Urinary tract infection Patient Disposition: Home, Self-Care Condition: Stable Instructions: Antibiotic Form, Urinary Tract Infection in Older Adults (ED) Additional Instructions: Increased water intake Take Tylenol as needed for pain Take antibiotic as prescribed Today your urine dip showed a probability of a UTI. You have been prescribed an antibiotic. Your urine will be sent to our lab for a culture. If at that time a bacteria grows that is not covered by the antibiotic prescribed you will be notified. Follow-up with primary care For new or worsening symptoms go directly to the emergency room Patient Language: Botswanan Prescriptions: New cefuroxime axetil 500 mg tablet 500 mg PO BID Qty: 10 0RF No Action losartan 25 mg tablet 25 mg PO DAILY hydralazine 50 mg tablet 50 mg PO DAILY metformin 500 mg tablet 500 mg PO BID polysaccharide iron complex [Poly-Iron] 150 mg iron capsule 150 mg PO DAILY metoprolol tartrate 25 mg tablet 25 mg PO DAILY rosuvastatin 20 mg tablet 20 mg PO DAILY aspirin 81 mg tablet,delayed release (DR/EC) 81 mg PO DAILY hydrochlorothiazide 25 mg tablet 25 mg PO DAILY polysaccharide iron complex 150 mg iron capsule 150 mg PO DAILY pantoprazole 40 mg tablet,delayed release (DR/EC) 40 mg PO DAILY rosuvastatin 40 mg tablet 40 mg PO DAILY Follow-up/Referrals: Quinn,Yoav Grey MD [Primary Care Provider] - 2 Weeks ( [facility] follow-up) Stand Alone Forms: Work/School Release IP Time of Disposition: 11:18
== END 2024-12-26 11:22 | disposition home or self-care (01) ==
PROVIDERS: Emergency Provider Nurse Practitioner; PCP Internal Medicine
DX: N39.0 Urinary tract infection, site not specified (principal); E11.9 Type 2 diabetes mellitus without complications; Z79.84 Long term (current) use of oral hypoglycemic drugs; I10 Essential (primary) hypertension; E78.00 Pure hypercholesterolemia, unspecified; K21.9 Gastro-esophageal reflux disease without esophagitis; Z79.82 Long term (current) use of aspirin
CPT/HCPCS: 81003; 87086; 99213; G0463

== ENCOUNTER 2025-02-18 14:24 | Emergency (ER) | payer OTHER, MEDICARE, SELFPAY ==
[2025-02-18 14:33] VITALS: BP 125/60; PULSE 65; RESP 16; TEMP 35.9; O2SAT 100
--- NOTE | 2025-02-18 14:37 | ED.FEMALEGU ---
HPI - Female Genitourinary General Chief complaint: Urogenital-Female Stated complaint: UTI Time Seen by Provider: 02/18/25 14:37 Source: patient, RN notes reviewed and old records reviewed Mode of arrival: ambulatory Limitations: no limitations History of Present Illness HPI Narrative: 79-year-old female presents to the [facility] with cloudy, foul-smelling urine since Monday. Denies fevers, abdominal pain. Denies burning with urination. Related Data Home Medications ?Medication ?Instructions ?Recorded ?Confirmed ?Last Taken ?Type metformin 500 mg tablet 500 mg PO BID 03/30/21 12/26/24 Unknown History metoprolol tartrate 25 mg tablet 25 mg PO DAILY 03/30/21 12/26/24 Unknown History polysaccharide iron complex 150 mg 150 mg PO DAILY 03/30/21 12/26/24 Unknown History iron capsule (Poly-Iron) hydralazine 50 mg tablet 50 mg PO DAILY 07/24/22 12/26/24 Unknown History losartan 25 mg tablet 25 mg PO DAILY 07/24/22 12/26/24 Unknown History rosuvastatin 20 mg tablet 20 mg PO DAILY 10/28/22 12/26/24 Unknown History aspirin 81 mg tablet,delayed 81 mg PO DAILY 03/26/24 12/26/24 Unknown History release hydrochlorothiazide 25 mg tablet 25 mg PO DAILY 03/26/24 12/26/24 Unknown History pantoprazole 40 mg tablet,delayed 40 mg PO DAILY 08/04/24 12/26/24 Unknown History release polysaccharide iron complex 150 mg 150 mg PO DAILY 08/04/24 12/26/24 Unknown History iron capsule rosuvastatin 40 mg tablet 40 mg PO DAILY 08/04/24 12/26/24 Unknown History Allergies Allergy/AdvReac Type Severity Reaction Status Date / Time acetaminophen Allergy Unknown ITCHING Verified 02/18/25 14:36 AND SWELLING codeine Allergy Unknown Itching Verified 02/18/25 14:36 lisinopril Allergy Unknown Other Verified 02/18/25 14:36 Review of Systems Review of Systems: All systems reviewed & are unremarkable except as noted in HPI and below Constitutional: Constitutional: Reports no additional constitutional complaints ENT: Reports system reviewed and no additional complaints, except as documented Cardiovascular: Cardiovascular: Reports no additional cardiovascular complaints, Denies chest pain and Denies dyspnea Respiratory: Respiratory: Reports no additional respiratory complaints, Denies chest congestion, Denies cough and Denies dyspnea Genitourinary: Genitourinary: Reports as per HPI Musculoskeletal: Musculoskeletal: Reports no additional musculoskeletal complaints Integumentary/Breasts: Skin/Breast: Reports system reviewed and no additional complaints, except [facility] docu [facility] Past Medical History Medical History Diabetes High cholesterol GERD (gastroesophageal reflux disease) Tinnitus Hypertension Social History Social History Gender identity (if verbalized by the patient): Female Comments At the time of my signature, I reviewed and agree with the nursing past medical, surgical, social, and family history. There is no relevant family history pertinent to the patient complaint. Exam Const: General: cooperative, healthy appearing, comfortable, no acute distress, well developed, alert and well nourished Nutritional Appearance: well nourished Orientation/consciousness: patient oriented x3 Limitations: no limitations HENMT: Head: normal to inspection Mouth: Yes Normal oral and palatal mucosa present, Yes lip normal, Yes tongue normal and Yes moist mucous membranes Eyes: General: appearance normal, both eyes and all related structures Alignment and Position: alignment normal Neck: Neck: normal visual inspection, full ROM, no lymphadenopathy and no meningeal signs Chest: Chest palpation & inspection: normal inspection of the chest Resp: Effort & Inspection: normal respiratory effort and able to speak in complete sentences Auscultation: clear to auscultation bilaterally, no crackles, no rales, no rhonchi and no wheezes Cardio: Rate: regular rate GI: GI Palp: No abdominal tenderness : General: Yes no CVA tenderness Skin: General skin exam: normal color and no rashes or lesions noted Neuro: General: patient oriented x3, gait normal, moves all extremities and no meningeal signs Cognition (Neuro): normal cognition Speech: normal speech Gait exam (Neuro): Normal gait present Extrem: General: normal to inspection, full ROM, capillary refill normal and normal gait Psych: Appearance: grossly normal and well kempt Mental Status: mental status grossly normal Speech and movement: Normal speech and movement present and Clear speech present Affect: normal affect Attitude: cooperative Course Course Level of Care: Express Care Visit Vital Signs Vital signs: Vital Signs Temperature 96.6 F L 02/18/25 14:33 Pulse Rate 65 02/18/25 14:33 Respiratory Rate 16 02/18/25 14:33 Blood Pressure 125/60 02/18/25 14:33 Pulse Oximetry 100 02/18/25 14:33 Oxygen Delivery Room Air 02/18/25 14:33 Temperature 96.6 F L 02/18/25 14:33 Pulse Rate 65 02/18/25 14:33 Respiratory Rate 16 02/18/25 14:33 Blood Pressure 125/60 02/18/25 14:33 Pulse Oximetry 100 02/18/25 14:33 Oxygen Delivery Room Air 02/18/25 14:33 Reviewed MDM - Female Genitourinary MDM Narrative Medical decision making narrative: Patient sitting in exam room. Nontoxic vitals stable. Patient in no acute distress. Patient presents with concerns for UTI. Everything on urine dip were negative except for trace ketones. will culture Patient appropriate for outpatient treatment with close follow-up Discharge instructions reviewed with patient, as well as provided in writing per nursing staff. The instructions also include specific and strict return/GO TO THE ER as well as f/u information. All questions have been answered, and the patient deny any further questions with discharge and discharge plan. Some parts of this dictation were generated by voice recognition software and may contain typographical and/or grammatical inaccuracies. Differential Diagnosis Differential diagnosis: Likely urinary tract infection, cystitis and other (Dysuria) Lab Data Labs: Lab Results 02/18/25 Range/Units 14:45 POC Urine Color Yellow POC Urine Clarity Cloudy POC Urine pH 6.0 POC Ur Specif [place] 1.020 POC Urine Protein Negative (Negative) POC Ur Glucose (UA) Negative (Negative) POC Urine Ketones Trace (Negative) POC Urine Blood Negative (Negative) POC Urine Nitrite Negative (Negative) POC Urine Bilirubin Negative (Negative) POC Urine Urobilinogen 0.2 POC U Leukocyte Esteras Negative (Negative) Reviewed Critical Care Time Critical Care Time Critical Care Time: No Discharge Plan Discharge Clinical Impression: Dysuria Patient Disposition: Home Condition: Stable Instructions: Antibiotic Form, Dysuria (ED) Additional Instructions: Today your urine did not show signs of a UTI. Follow-up with primary care provider New or worsening symptoms go directly to the emergency room Patient Language: Nauruan Prescriptions: No Action losartan 25 mg tablet 25 mg PO DAILY hydralazine 50 mg tablet 50 mg PO DAILY cefuroxime axetil 500 mg tablet 500 mg PO BID Qty: 10 0RF metformin 500 mg tablet 500 mg PO BID polysaccharide iron complex [Poly-Iron] 150 mg iron capsule 150 mg PO DAILY metoprolol tartrate 25 mg tablet 25 mg PO DAILY rosuvastatin 20 mg tablet 20 mg PO DAILY aspirin 81 mg tablet,delayed release (DR/EC) 81 mg PO DAILY hydrochlorothiazide 25 mg tablet 25 mg PO DAILY polysaccharide iron complex 150 mg iron capsule 150 mg PO DAILY pantoprazole 40 mg tablet,delayed release (DR/EC) 40 mg PO DAILY rosuvastatin 40 mg tablet 40 mg PO DAILY Follow-up/Referrals: Quinn,Yoav Grey MD [Primary Care Provider] - 2 Weeks Time of Disposition: 14:59
[2025-02-18 14:53] LABS: EDUAAPPEAR Cloudy; EDUABILI Negative (Negative); EDUABLOOD Negative (Negative); EDUACOLOR1 Yellow; EDUAGLUCOSE Negative (Negative); EDUAKETONE Trace (Negative); EDUALEUKO Negative (Negative); EDUANITRATE Negative (Negative); EDUAPROTEIN Negative (Negative); EDUAUROBILI 0.2
== END 2025-02-18 15:05 | disposition home or self-care (01) ==
PROVIDERS: Emergency Provider Nurse Practitioner; PCP Internal Medicine
DX: R30.0 Dysuria (principal); Z79.84 Long term (current) use of oral hypoglycemic drugs; E11.9 Type 2 diabetes mellitus without complications; I10 Essential (primary) hypertension; E78.00 Pure hypercholesterolemia, unspecified; K21.9 Gastro-esophageal reflux disease without esophagitis; Z79.82 Long term (current) use of aspirin
CPT/HCPCS: 81003; 87086; 99213; G0463

== ENCOUNTER 2025-10-27 11:50 | Emergency (ER) | payer OTHER, MEDICARE, SELFPAY ==
[2025-10-27 12:09] VITALS: BP 151/64; PULSE 83; RESP 16; TEMP 37.7; O2SAT 100
[2025-10-27 12:16] LABS: EDCOVIDSCREEN Positive (Negative)
--- NOTE | 2025-10-27 12:16 | ED.URI ---
HPI - URI/Sore Throat General Chief Complaint: Upper Respiratory Infection Stated Complaint: URI Symptoms Time Seen by Provider: 10/27/25 12:16 Source: patient, RN notes reviewed and old records reviewed Mode of arrival: ambulatory Limitations: no limitations History of Present Illness HPI Narrative: 80-year-old female presents to the [facility] with complaints of when day history of fevers and body aches. Had taken Claritin. Treatments prior to arrival: cold medicine Related Data Home Medications ?Medication ?Instructions ?Recorded ?Confirmed ?Last Taken ?Type metformin 500 mg tablet 500 mg PO BID 03/30/21 10/27/25 Unknown History metoprolol tartrate 25 mg tablet 25 mg PO DAILY 03/30/21 10/27/25 Unknown History polysaccharide iron complex 150 mg 150 mg PO DAILY 03/30/21 12/26/24 Unknown History iron capsule (Poly-Iron) losartan 25 mg tablet 25 mg PO DAILY 07/24/22 10/27/25 Unknown History rosuvastatin 20 mg tablet 20 mg PO DAILY 10/28/22 10/27/25 Unknown History aspirin 81 mg tablet,delayed 81 mg PO DAILY 03/26/24 10/27/25 Unknown History release hydrochlorothiazide 25 mg tablet 25 mg PO DAILY 03/26/24 10/27/25 Unknown History pantoprazole 40 mg tablet,delayed 40 mg PO DAILY 08/04/24 10/27/25 Unknown History release polysaccharide iron complex 150 mg 150 mg PO DAILY 08/04/24 10/27/25 Unknown History iron capsule buspirone 7.5 mg tablet mg 10/27/25 Unknown History estradiol 0.01% (0.1 mg/gram) vaginal 10/27/25 Unknown History vaginal cream hydrochlorothiazide 12.5 mg tablet mg 10/27/25 Unknown History metoprolol succinate 25 mg mg PO 10/27/25 Unknown History tablet,extended release 24 hr Allergies Allergy/AdvReac Type Severity Reaction Status Date / Time acetaminophen Allergy Unknown ITCHING Verified 10/27/25 12:08 AND SWELLING codeine Allergy Unknown Itching Verified 10/27/25 12:08 lisinopril Allergy Unknown Other Verified 10/27/25 12:08 Review of Systems Review of Systems: All systems reviewed & are unremarkable except as noted in HPI and below Constitutional: Constitutional: Reports as per HPI and Reports fever(s) ENT: Reports system reviewed and no additional complaints, except as documented Cardiovascular: Cardiovascular: Reports no additional cardiovascular complaints, Denies chest pain and Denies dyspnea Respiratory: Respiratory: Reports no additional respiratory complaints, Denies chest congestion, Denies cough and Denies dyspnea Musculoskeletal: Musculoskeletal: Reports no additional musculoskeletal complaints Integumentary/Breasts: Skin/Breast: Reports system reviewed and no additional complaints, except as docu PMFSH Past Medical History Medical History Diabetes High cholesterol GERD (gastroesophageal reflux disease) Tinnitus Hypertension Social History Social History Gender identity (if verbalized by the patient): Female Comments At the time of my signature, I reviewed and agree with the nursing past medical, surgical, social, and family history. There is no relevant family history pertinent to the patient complaint. Exam Const: General: cooperative, no acute distress, well developed, alert, tired appearing, uncomfortable and well nourished Nutritional Appearance: well nourished Orientation/consciousness: patient oriented x3 Limitations: no limitations HENMT: Head: normal to inspection Ears: hearing grossly normal bilaterally, external ears normal, TM's normal bilaterally, EAC's normal, mastoids normal and no periauricular adenopathy Face and sinus: normal facial exam and face symmetric Mouth: Yes Normal oral and palatal mucosa present, Yes lip normal, Yes tongue normal and Yes moist mucous membranes Throat: posterior oropharynx normal, uvula midline and no uvular edema Eyes: General: appearance normal, both eyes and all related structures Alignment and Position: alignment normal Neck: Neck: normal visual inspection, full ROM, no lymphadenopathy and no meningeal signs Chest: Chest palpation & inspection: normal inspection of the chest Resp: Effort & Inspection: normal respiratory effort and able to speak in complete sentences Auscultation: clear to auscultation bilaterally, no crackles, no rales, no rhonchi and no wheezes Cardio: Rate: regular rate Skin: General skin exam: normal color and no rashes or lesions noted Neuro: General: patient oriented x3, gait normal, moves all extremities and no meningeal signs Cognition (Neuro): normal cognition Speech: normal speech Gait exam (Neuro): Normal gait present Extrem: General: normal to inspection, full ROM, capillary refill normal and normal gait Psych: Appearance: grossly normal and well kempt Mental Status: mental status grossly normal Speech and movement: Normal speech and movement present and Clear speech present Affect: normal affect Attitude: cooperative Course Course Level of Care: Express Care Visit Vital Signs Vital signs: Vital Signs Temperature 100 F H 10/27/25 12:09 Pulse Rate 83 10/27/25 12:09 Respiratory Rate 16 10/27/25 12:09 Blood Pressure 151/64 H 10/27/25 12:09 Pulse Oximetry 100 10/27/25 12:09 Temperature 100 F H 10/27/25 12:09 Pulse Rate 83 10/27/25 12:09 Respiratory Rate 16 10/27/25 12:09 Blood Pressure 151/64 H 10/27/25 12:09 Pulse Oximetry 100 10/27/25 12:09 reviewed [facility] Narrative Medical decision making narrative: Patient sitting in exam room. Patient is nontoxic, vitals stable. Patient presents with URI symptoms since yesterday. Patient is COVID positive. Patient is appropriate for outpatient treatment with close follow-up Discharge instructions reviewed with patient, as well as provided in writing per nursing staff. The instructions also include specific and strict return/GO TO THE ER as well as f/u information. All questions have been answered, and the patient deny any further questions with discharge and discharge plan. Some parts of this dictation were generated by voice recognition software and may contain typographical and/or grammatical inaccuracies. Differential Diagnosis Differential Diagnosis: Differential diagnostic considerations for upper respiratory infection include upper respiratory infection, croup, otitis media, sinusitis, viral infection, bronchitis, influenza, pharyngitis, strep, uvulitis.? Lab Data [facility] Lab Attestation statement: I personally reviewed the patient's lab results. Labs: Lab Results 10/27/25 10/27/25 Range/Units 12:14 12:23 POC Influenza A Ag Negative (Negative) POC Influenza B Ag Negative (Negative) POC SARS CoV-2 Ag Positive (Negative) Reviewed Discharge Plan Discharge Clinical Impression: COVID-19 Patient Disposition: Home Condition: Stable Instructions: Antibiotic Form, COVID-19 (Coronavirus Disease 2019) (ED), COVID-19 and Chronic Health Conditions (ED), COVID-19: Slow the Coronavirus Spread (ED) Additional Instructions: Your rapid COVID test was positive. You must wear mask for 10 days if you around any other person. Your rapid flu test was negative Your symptoms are due to a viral illness, which is not treated with antibiotics. Typically viral infections last 7-10 days, can linger for couple of weeks. It is very important to treat your symptoms. Drink plenty of water, Gatorade, Pedialyte, ice pops or Jell-O. -take ibuprofen per package instruction -Antihistamine medication such as Zyrtec/Claritin during the day can help improve symptoms. -You can also use Coricidin HBP or Mucinex. Be sure to drink plenty of water with this medication at least 8 ounces with every dose and it is important to drink 8 to 10 glasses of water per day. Water is a natural decongestant -Eat and drink things that are easy to swallow, like tea or soup, or popsicles. -Oral rinses such as: Salt water gargles and/or may use topical anesthetic (eg. Chloraseptic spray) or lozenges to relieve dryness or throat pain). -Frequent hand washing or hand ruling machine set up operator is one of the best ways to prevent spread of infection. -Using a vaporizer or humidifier at night will also help thin secretions and help with coughing up phlegm. -Follow up with primary care provider in 7-10 days if condition is not improving - For new or worsening symptoms go directly to the nearest ER Patient Language: Serbian Prescriptions: No Action losartan 25 mg tablet 25 mg PO DAILY buspirone 7.5 mg tablet metoprolol succinate 25 mg tablet extended release 24 hr PO estradiol 0.01 % (0.1 mg/gram) cream VAGINAL hydrochlorothiazide 12.5 mg tablet metformin 500 mg tablet 500 mg PO BID polysaccharide iron complex [Poly-Iron] 150 mg iron capsule 150 mg PO DAILY metoprolol tartrate 25 mg tablet 25 mg PO DAILY rosuvastatin 20 mg tablet 20 mg PO DAILY aspirin 81 mg tablet,delayed release (DR/EC) 81 mg PO DAILY hydrochlorothiazide 25 mg tablet 25 mg PO DAILY polysaccharide iron complex 150 mg iron capsule 150 mg PO DAILY pantoprazole 40 mg tablet,delayed release (DR/EC) 40 mg PO DAILY Follow-up/Referrals: UNKNOWN,DOCTOR [Primary Care Provider] Stand Alone Forms: Work/School Release IP Time of Disposition: 12:17
[2025-10-27 12:24] LABS: EDINFLUASCREEN Negative (Negative); EDINFLUBSCREEN Negative (Negative)
== END 2025-10-27 12:30 | disposition home or self-care (01) ==
PROVIDERS: Emergency Provider Nurse Practitioner
DX: U07.1 COVID-19 (principal); E11.9 Type 2 diabetes mellitus without complications; E78.00 Pure hypercholesterolemia, unspecified; K21.9 Gastro-esophageal reflux disease without esophagitis; H93.19 Tinnitus, unspecified ear; I10 Essential (primary) hypertension
CPT/HCPCS: 87426; 87804; 99212; G0463